=== PATIENT | male | born 1965 | race African-American/Black ===

== ENCOUNTER 2021-09-11 19:10 | Emergency (ER) | payer OTHER ==
[2021-09-11 19:21] VITALS: BP 161/83; PULSE 88; TEMP 98.9; BMI 30.7
[2021-09-11] MEDS ORDERED: SODIUM CHLORIDE 1,000 ML IV STA (19:35)
[2021-09-11 20:08] LABS: ALBUMIN 3.5 g/dl (3.4-5.0); BILIRUBIN,TOTAL 0.7 mg/dl (0.2-1); CALCIUM 9.9 mg/dl (8.5-10); CREATININE 2.1 mg/dl (0.55-1.3); TOT PROT 6.9 g/dl (6.4-8.2)
[2021-09-11 20:52] LABS: BASO % 0.5 % (0-2.0); EOS % 0.8 % (0-4.5); HEMATOCRIT 42.1 % (35.4-49); HEMOGLOBIN 14.4 GM/dL (11.7-16.9); LYMPH % 12.7 % (8-40); MCH 30.3 pg (25.7-33.7); MCHC 34.1 g/dl (32.0-35.9); MEAN CELL VOLUME 88.8 fl (80-96); MEAN PLT VOLUME 7.4 fl (7.5-11.1); MONO % 9.6 % (3.8-10.2); NEUT % 76.4 % (42.8-82.8); PLATELET COUNT 370 10^3/uL (134-434); RBC 4.74 M/mm3 (4.00-5.60); WHITE BLOOD COUNT 10.3 K/mm3 (4.0-10.0)
[2021-09-11] MEDS ORDERED: morphine CARPU-JECT 2 MG/1 ML DISP.SYRIN IVPUSH ONE (21:14)
[2021-09-11] MEDS ORDERED: morphine SULFATE 4 MG/ML VIAL ONE (21:17)
[2021-09-11] MEDS ORDERED: MAGNESIUM CITRATE 300 ML BOTTLE ONE (22:29)
[2021-09-11] MEDS ORDERED: MAGNESIUM CITRATE 300 ML BOTTLE PO ONE (22:30)
== END 2021-09-11 22:42 | disposition home or self-care (01) ==
LOC: FER 19:10
PROC: 3E033NZ Introduction of Analgesics, Hypnotics, Sedatives into Peripheral Vein, Percutaneous Approach (ICD-10-PCS; principal; 2021-09-11)
PROC: 3E0337Z Introduction of Electrolytic and Water Balance Substance into Peripheral Vein, Percutaneous Approach (ICD-10-PCS; 2021-09-11)
DX: K59.00 Constipation, unspecified (principal)
CPT/HCPCS: 36415; 74176-TC; 80053; 81003; 83690; 85025; 99284-25